=== PATIENT | male | born 1970 | race Caucasian/White ===

== ENCOUNTER 2024-02-16 06:26 | Day surgery (SDC) | payer OTHER ==
[2024-02-16] MEDS: Lactated Ringers 1,000 ML IV SCH (06:37)
[2024-02-16 06:58] VITALS: RESP 16
[2024-02-16] MEDS ORDERED: DIPRIVAN 200 MG/20 ML IV ONE ×3 (07:53→08:44)
[2024-02-16] MEDS ORDERED: Versed 2 MG/2 ML Injection ONE (07:54)
[2024-02-16] MEDS ORDERED: Lactated Ringers 1,000 ML IV ONE (09:03)
[2024-02-16 09:30] VITALS: TEMP 97.5
[2024-02-16 09:36] VITALS: BP 127/81; PULSE 79; O2SAT 96
--- NOTE | 2024-02-17 12:16 | OP ---
SURGERY DATE/TIME: 02/16/2024 [id number] - [id number] PREOPERATIVE DIAGNOSIS: Change in bowel habits. POSTOPERATIVE DIAGNOSIS: Two large polyps. PROCEDURE PERFORMED: Colonoscopy. SURGEON: Rafa Vivas MD ANESTHESIA: MAC by Steffen Contreras CRNA. ESTIMATED BLOOD LOSS: Minimal. SPECIMENS: There were 2 hot snare polypectomies, one from the descending colon and one from the sigmoid. DESCRIPTION OF PROCEDURE AND FINDINGS: After informed written consent was obtained, the patient was taken to the endoscopy suite. He was placed in a left lateral decubitus position and anesthesia was titrated to the desired level of consciousness. Digital rectal exam showed normal sphincter tone and no internal lesions. The scope was inserted in the rectum, and sequentially the entire colonic mucosa was traversed. The level of the cecum was reached and verified with direct visualization of the ileocecal valve. Upon withdrawal, there was a large sessile polyp in the descending colon just past the splenic flexure. It was snared and too large to pass through the scope channel so the scope was pulled through and polyp was retrieved and sent for pathology. There was another large sessile polyp in the proximal sigmoid, which was likewise snared and removed on the end of the scope. The areas appeared to be hemostatic following removal. Scope was removed after retroflexion showed no internal lesions. Scope was removed and then, patient was transferred to the recovery room in good condition. He will follow up in 1 week for pathology results.
== END 2024-02-16 09:40 | disposition home or self-care (01) ==
LOC: SDC 06:26
PROVIDERS: ATTEND Family Medicine
DX: D12.4 Benign neoplasm of descending colon (principal); D12.5 Benign neoplasm of sigmoid colon; R19.4 Change in bowel habit
CPT/HCPCS: 93005; J2250; J2704